=== PATIENT | female | born 1980 | race Two or more races ===

== ENCOUNTER 2023-12-09 17:59 | Emergency (ER) | payer OTHER ==
[2023-12-09 18:09] VITALS: BP 118/78; PULSE 93; RESP 20; TEMP 98.5; BMI 38.2
[2023-12-09] MEDS ORDERED: LIDOCAINE HCL 2% (50ML VIAL) SQ ONE (18:50)
[2023-12-09] MEDS ORDERED: LIDOCAINE HCL 2% (20ML MULTI-DOSE VIAL) ONE (18:54)
== END 2023-12-09 19:46 | disposition home or self-care (01) ==
LOC: JER 17:59
PROC: 0HQNXZZ Repair Left Foot Skin, External Approach (ICD-10-PCS; principal; 2023-12-09)
DX: L03.032 Cellulitis of left toe (principal)
CPT/HCPCS: 99283-25